=== PATIENT | male | born 1960 | race Hispanic/Latino ===

== ENCOUNTER → 2024-05-16 16:12 | Outpatient (REF) | payer OTHER, SELFPAY ==
[2024-05-16 17:04] LABS: C-Reactive Protein < 5.00 mg/L (0.0-10.00)
[2024-05-16 17:18] LABS: Erythrocyte Sed Rate 1 mm/hour (0-20)
== END ==
LOC: REG 16:12
PROVIDERS: ATTENDING PHYSICIAN Orthopaedic Surgery; FAMILY PHYSICIAN Family Medicine
DX: Z96.652 Presence of left artificial knee joint (principal)
CPT/HCPCS: 36415; 85652; 86140

== ENCOUNTER 2024-06-12 07:43 | Inpatient (IN) | payer OTHER, SELFPAY ==
[2024-05-27 08:52] LABS: Hematocrit 45.5 % (39.0-52.0); Hemoglobin 15.6 g/dL (13.0-18.0); Mean Corp Hgb Conc. 34.3 g/dL (33.0-37.0); Mean Corpuscular Hgb 31.7 pg (27.0-31.0); Mean Corpuscular Volume 92.5 fL (80.0-94.0); Mean Platelet Volume 10.1 fL (7.4-10.4); Platelet Count 266 10^3/uL (130-400); Red Blood Cell Count 4.92 10^6/uL (4.70-6.10); Red Cell Dist. Width 12.9 % (11.5-14.5); White Blood Cell Count 5.6 10^3/uL (4.8-10.8)
[2024-05-27 09:21] LABS: ALT (SGPT) 21 U/L (0-50); AST (SGOT) 21 U/L (17-59); Albumin 4.5 g/dl (3.5-5.0); Alkaline Phosphatase 99 U/L (38-126); Blood Urea Nitrogen 17 mg/dl (9-20); Calcium 9.7 mg/dl (8.4-10.2); Carbon Dioxide 28 mmol/L (22-30); Chloride 102 mmol/L (98-107); Glucose 96 mg/dl (70-99); Potassium 4.4 mmol/L (3.5-5.1); Sodium 137 mmol/L (135-145); Total Bilirubin 1.2 mg/dl (0.2-1.3); Total Protein 7.1 g/dl (6.3-8.2); eGFR > 60.00
[2024-05-27 09:36] LABS: Glycohemoglobin (HgbA1c) 5.5 % (4.0-5.6)
[2024-05-27 14:14] VITALS: BMI 35.0
[2024-06-04 11:59] VITALS: BMI 35.0
[2024-06-12] VITALS (17 sets, daily range): BP systolic 140–173; BP diastolic 89–112; PULSE 102; O2SAT 97
[2024-06-12] MEDS: TYLENOL 650 MG PO ×3 (08:05→20:50)
[2024-06-12] MEDS: NORMOSOL-R/PLASMALYTE-A 1000 IV ×2 (08:05→17:26)
[2024-06-12] MEDS: CELEBREX 200 MG PO (08:06)
[2024-06-12] MEDS: BACTROBAN NASAL 1 GRAM NASAL (08:06)
[2024-06-12] MEDS: DILAUDID 0.5 MG IV ×2 (10:55→11:14)
--- NOTE | 2024-06-12 11:25 | W.DS.TRANS ---
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
-
Discharge Instructions:
Discharge Diagnosis/Procedures L TKA Revision 06/12/24
Diet As tolerated
Activity With Walker
Driving Restrictions No driving
Bathing Restrictions OK to Shower
Other Services PT
Instructions:
Stand-Alone Forms: Total Hip/Knee Replacement D/C
Changes to Home Medications: Yes
Discharge Medications:
DC Medications w/original date entered in [employer]
atorvastatin 10 mg tablet 40 mg PO DAILY 05/24/24
multivitamin 1 tab PO DAILY 05/24/24
mupirocin 2 % topical ointment 1 applic intranasal BID #1 tube 05/27/24
Saccharomyces boulardii 250 mg capsule (Florastor) 250 mg PO BID #1 cap 06/12/24
acetaminophen 325 mg tablet (Tylenol) 650 mg (2 x 325 mg) PO QID #0 tabs 06/12/24
aspirin 325 mg tablet 325 mg PO DAILY blood clot prevention #1 tab 06/12/24
cefadroxil 500 mg capsule 500 mg PO BID infection prevention #14 caps 06/12/24
celecoxib 200 mg capsule (Celebrex) 200 mg PO DAILY #0 caps 06/12/24
dexamethasone 4 mg tablet 4 mg PO BID inflammation #6 tabs 06/12/24
docusate sodium 100 mg capsule (Colace) 100 mg PO BID stool softner #1 cap 06/12/24
famotidine 20 mg tablet 20 mg PO HS GI prophylaxis #30 tabs 06/12/24
gabapentin 300 mg capsule 300 mg PO HS sleep/pain #10 caps 06/12/24
magnesium hydroxide 400 mg/5 mL oral suspension (Milk of Magnesia) 30 ml PO HS PRN Constipation #1 mL 06/12/24
ondansetron 4 mg disintegrating tablet 4 mg PO Q6H PRN n/v #20 tabs 06/12/24
oxycodone 5 mg tablet 5 mg PO Q6H PRN 1 tab moderate pain, 2 tabs severe pain #30 tabs 06/12/24
sennosides 8.6 mg tablet (Senokot) 17.2 mg (2 x 8.6 mg) PO BID laxative #2 tabs 06/12/24
Home Medication Changes
mupirocin 2 % topical ointment 1 applic intranasal BID #1 tube 05/27/24
Saccharomyces boulardii 250 mg capsule (Florastor) 250 mg PO BID #1 cap 06/12/24
acetaminophen 325 mg tablet (Tylenol) 650 mg (2 x 325 mg) PO QID #0 tabs 06/12/24
aspirin 325 mg tablet 325 mg PO DAILY blood clot prevention #1 tab 06/12/24
cefadroxil 500 mg capsule 500 mg PO BID infection prevention #14 caps 06/12/24
celecoxib 200 mg capsule (Celebrex) 200 mg PO DAILY #0 caps 06/12/24
dexamethasone 4 mg tablet 4 mg PO BID inflammation #6 tabs 06/12/24
docusate sodium 100 mg capsule (Colace) 100 mg PO BID stool softner #1 cap 06/12/24
famotidine 20 mg tablet 20 mg PO HS GI prophylaxis #30 tabs 06/12/24
gabapentin 300 mg capsule 300 mg PO HS sleep/pain #10 caps 06/12/24
magnesium hydroxide 400 mg/5 mL oral suspension (Milk of Magnesia) 30 ml PO HS PRN Constipation #1 mL 06/12/24
ondansetron 4 mg disintegrating tablet 4 mg PO Q6H PRN n/v #20 tabs 06/12/24
oxycodone 5 mg tablet 5 mg PO Q6H PRN 1 tab moderate pain, 2 tabs severe pain #30 tabs 06/12/24
sennosides 8.6 mg tablet (Senokot) 17.2 mg (2 x 8.6 mg) PO BID laxative #2 tabs 06/12/24
Pending Results: No
--- NOTE | 2024-06-12 11:26 | W.PN.UPDATE ---
Update Note
Progress Note Update
L TKA Revision-06/12/24-*Early D/C*
DVT ppx ASA
[2024-06-12] MEDS: DILAUDID 0.25 MG IV (12:07)
[2024-06-12] MEDS: ROXICODONE 5 MG PO ×3 (13:45→19:30)
--- NOTE | 2024-06-12 15:59 | PTCARENOTE ---
Received patient from [facility] at 1550 via bed in stable condition. Dressing to left knee with moderate drainage. Alia Brown made aware. Patient oriented to room. Call sapp in reach.
[2024-06-12] MEDS: TYLENOL PO (16:27)
[2024-06-12] MEDS: ASPIRIN 325 MG PO (17:25)
[2024-06-12] MEDS: ANCEF 5 IV (17:25)
[2024-06-12] MEDS: LIPITOR 40 MG PO (17:25)
[2024-06-12] MEDS: COLACE 100 MG PO (20:50)
[2024-06-12] MEDS: SENOKOT 17.2 MG PO (20:50)
[2024-06-12] MEDS: BACTROBAN 2% OINTMENT 1 APPLIC NASAL (22:23)
[2024-06-12] MEDS: DECADRON 4 MG IV (22:24)
[2024-06-12] MEDS: TORADOL 15 MG IV (22:24)
[2024-06-12] MEDS: ULTRAM 50 MG PO (22:25)
[2024-06-12] MEDS: PEPCID 20 MG PO (22:25)
[2024-06-12] MEDS: NEURONTIN 300 MG PO (22:25)
[2024-06-13] MEDS: ANCEF 5 IV (00:23)
[2024-06-13] MEDS: TYLENOL 650 MG PO ×3 (00:23→08:20)
[2024-06-13 03:21] VITALS: BP 143/91
[2024-06-13] MEDS: ULTRAM 50 MG PO (05:57)
[2024-06-13] MEDS: DECADRON 4 MG IV (05:58)
[2024-06-13] MEDS: ROXICODONE 5 MG PO ×2 (05:58→09:54)
[2024-06-13] MEDS: TORADOL 15 MG IV (05:58)
[2024-06-13 07:25] VITALS: BP 142/99
[2024-06-13 08:11] VITALS: BP 142/99; PULSE 95; O2SAT 95
[2024-06-13] MEDS: ASPIRIN 325 MG PO (08:20)
[2024-06-13] MEDS: CELEBREX 200 MG PO (08:20)
[2024-06-13] MEDS: COLACE 100 MG PO (08:20)
[2024-06-13] MEDS: LIPITOR 40 MG PO (08:20)
[2024-06-13] MEDS: BACTROBAN 2% OINTMENT 1 APPLIC NASAL (08:21)
[2024-06-13] MEDS: SENOKOT 17.2 MG PO (08:27)
--- NOTE | 2024-06-13 08:50 | CM ---
Cm reviewed medical records. CM met with patient and in room. Patient confirmed demographics. Patient lives with in a two story home. Patient has had a history of VN with an unknown agency. Patient does not have a history of SNF. Patient
is active with his PCP. Patient confirmed that he has all appropriate DME in the home. P
Plan for outpatient PT on 06/14 at [facility] in [place].
CM will remain available as needed.
PLAN: home with outpatient pt, pending PT/OT assessment.
[2024-06-13 09:06] VITALS: BP 137/95; PULSE 90
--- NOTE | 2024-06-13 09:30 | W.PN.ORTHO ---
Today's Communication / Plan
-
d/c
Assessment
.
Distal Motor Intact: Yes
Dressing:
Clean, dry and intact.
Assessment:
Incisional serous sanguinous drainage as typical for revision-dose x1 tranexamic acid, change bandage and reinforce-hgb stable with no hemodynamic compromise
Plan
.
Surgery / Date: L TKA Revision-06/12/24-*Early D/C*
DVT Prophylaxis: Aspirin
Activity:
Out of bed.
PT/OT
Discharge Plan: Home w/ Outpatient PT
Subjective
.
.:
Patient resting comfortably.
Vital Signs and Labs
.
Vital Signs and Labs:
Lab Results
05/27/24 07:23
05/27/24 07:23
Temp Pulse Resp BP Pulse Ox
97.7 F 95 18 142/99 96
06/13/24 07:25 06/13/24 07:25 06/13/24 07:25 06/13/24 07:25 06/13/24 07:25
Non-invasive Hgb result: 13.6
Physical Exam
-
HEENT: No pallor, cyanosis, or jaundice. Throat clear.
NECK: Supple. No JVD.
RESPIRATORY: Lungs clear to auscultation.
CVS: S1, S2 normal. RRR.� No murmur, rub or gallop.
ABDOMEN: Soft, non-tender. No distension. BS+/normal.
EXTREMITIES: strength equal, no calf pain with palpation-distal drainage from incision
MANAGER FILTER: AOx3. No focal deficits. 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
[2024-06-13] MEDS: CYKLOKAPRON 1300 MG PO (09:53)
[2024-06-13 18:45] LABS: Hepatitis C Antibody Negative (Negative)
== END 2024-06-13 10:38 | disposition home or self-care (01) | DRG 468 ==
LOC: 2 SOUTH 07:43
PROVIDERS: ADMITTING PHYSICIAN Orthopaedic Surgery; FAMILY PHYSICIAN Family Medicine
PROC: 0SUW09Z Supplement Left Knee Joint, Tibial Surface with Liner, Open Approach (ICD-10-PCS; 2024-06-12)
PROC: 0SRW0J9 Replacement of Left Knee Joint, Tibial Surface with Synthetic Substitute, Cemented, Open Approach (ICD-10-PCS; 2024-06-12)
PROC: 0SPD09Z Removal of Liner from Left Knee Joint, Open Approach (ICD-10-PCS; 2024-06-12)
PROC: 0SPW0JZ Removal of Synthetic Substitute from Left Knee Joint, Tibial Surface, Open Approach (ICD-10-PCS; 2024-06-12)
DX: T84.093A Other mechanical complication of internal left knee prosthesis, initial encounter (principal); Y79.2 Prosthetic and other implants, materials and accessory orthopedic devices associated with adverse incidents; M25.562 Pain in left knee; E66.09 Other obesity due to excess calories; Z96.652 Presence of left artificial knee joint; Z68.34 Body mass index [BMI] 34.0-34.9, adult
CPT/HCPCS: 73560; 80053; 83036; 85027; 86803; 86850; 86900; 86901; 87070; 93005; 97116; 97162; 97166; 97530; C1713; C1776

== ENCOUNTER 2025-02-12 08:50 | Inpatient (IN) | payer OTHER, SELFPAY ==
[2025-01-20 09:09] LABS: Hematocrit 45.3 % (39.0-52.0); Hemoglobin 15.8 g/dL (13.0-18.0); Mean Corp Hgb Conc. 34.9 g/dL (33.0-37.0); Mean Corpuscular Volume 93.6 fL (80.0-94.0); Platelet Count 266 10^3/uL (130-400); Red Cell Dist. Width 13.6 % (11.5-14.5)
[2025-01-20 09:29] LABS: Glycohemoglobin (HgbA1c) 5.3 % (4.0-5.9)
[2025-01-20 09:33] LABS: ALT (SGPT) 23 U/L (0-50); AST (SGOT) 22 U/L (17-59); Albumin 4.4 g/dl (3.5-5.0); Alkaline Phosphatase 97 U/L (38-126); Blood Urea Nitrogen 20 mg/dl (9-20); Calcium 9.3 mg/dl (8.4-10.2); Carbon Dioxide 32 mmol/L (22-30); Chloride 100 mmol/L (98-107); Glucose 111 mg/dl (70-99); HDL Cholesterol 74 mg/dl; LDL Cholesterol, Calculated 94 mg/dl; Potassium 4.7 mmol/L (3.5-5.1); Sodium 134 mmol/L (135-145); Total Protein 7.2 g/dl (6.3-8.2); Very Low Density Lipoprotein 9 mg/dl (0-30); eGFR > 60.00
[2025-01-20 13:56] VITALS: BMI 36.1
--- NOTE | 2025-01-24 09:07 | CM ---
Addendum entered by Libby Rodriguez RN 01/28/25 13:57:
Demographics: confirmed
Living situation: lives with
Support Person Post Operatively:
History of
VN: no
SNF: no
Outpatient: encouraged patient for 02/14, [facility]
Has patient purchased required equipment: yes
PCP: Debbie Baker
Pharmacy: [facility]
Post Operative Discharge Plan: Outpatient PT
Addendum entered by Libby Rodriguez RN 01/28/25 13:51:
CM left message for orthopedic IA.
Original Note:
CM reviewed medical records. Patient unable to speak at this time. Patient will call this CM back for orthopedic IA.
[2025-02-04 10:03] VITALS: BMI 36.1
[2025-02-12] VITALS (17 sets, daily range): BP systolic 112–177; BP diastolic 42–118; PULSE 100; O2SAT 95
[2025-02-12] MEDS: BACTROBAN NASAL 1 GRAM NASAL (09:02)
[2025-02-12] MEDS: TYLENOL 650 MG PO ×4 (09:03→23:30)
[2025-02-12] MEDS: CELEBREX 200 MG PO (09:03)
[2025-02-12] MEDS: NORMOSOL-R/PLASMALYTE-A 1000 IV ×2 (09:04→13:30)
[2025-02-12] MEDS: SUBLIMAZE 25 MCG IV (11:59)
[2025-02-12] MEDS: DILAUDID 0.5 MG IV ×2 (12:11→12:25)
--- NOTE | 2025-02-12 12:43 | W.PN.ORTHO ---
Today's Communication / Plan
-
d/c when stable
Plan
.
Surgery / Date: R LEO Ewing 02/12/25
DVT Prophylaxis: Aspirin
Activity:
Out of bed.
PT/OT
Discharge Plan: Home w/ Outpatient PT
Vital Signs and Labs
.
Vital Signs and Labs:
Lab Results
01/20/25 07:39
01/20/25 07:39
Temp Pulse Resp BP Pulse Ox
98.3 F 96 12 177/96 99
02/12/25 11:50 02/12/25 12:30 02/12/25 12:30 02/12/25 12:15 02/12/25 12:35
--- NOTE | 2025-02-12 12:54 | W.DS.TRANS ---
DC Summary - Rn Endocrinology
-
Discharge Instructions:
Discharge Diagnosis/Procedures R knee OA s/p R TKA w/ Dr Ewing 02/12/2025
Diet Other diet
Additional Diets Diabetic carb controlled x1 week for wound
healing/infection prevention.
Adequate hydration, minimize opioids, and wear
TEDS to prevent low blood pressure/dizziness.
Activity As tolerated,With Walker
Driving Restrictions Not until seen by your Dr
Bathing Restrictions OK to Shower
Other Services PT
Wound Care Dressing to be removed 1 week post-surgery.
Instructions:
Stand-Alone Forms: Total Hip/Knee Replacement D/C
Changes to Home Medications: Yes
Discharge Medications:
DC Medications w/original date entered in [employer]
atorvastatin 10 mg tablet 40 mg PO DAILY High Cholesterol 05/24/24
terbinafine HCl 250 mg tablet 250 mg PO DAILY 01/16/25
cefadroxil 500 mg capsule 500 mg PO BID #14 caps 01/20/25
celecoxib 200 mg capsule (Celebrex) 200 mg PO DAILY 01/20/25
dexamethasone 4 mg tablet 4 mg PO BID Anti-inflammatory #5 tabs 01/20/25
gabapentin 300 mg capsule 300 mg PO HS neuropathic pain/sleep #10 caps 01/20/25
mupirocin 2 % topical ointment 1 applic intranasal BID #1 tube 01/20/25
ondansetron HCl 4 mg tablet 4 mg PO Q6H PRN nausea and vomiting #30 tabs 01/20/25
oxycodone 5 mg tablet 5 - 10 mg (1 - 2 x 5 mg) PO Q6H PRN moderate-severe pain #30 tabs 01/20/25
acetaminophen 500 mg tablet (Tylenol Extra Strength) 1,000 mg (2 x 500 mg) PO QID #0 tabs 02/12/25
aspirin 325 mg tablet 325 mg PO DAILY blood clot prevention #1 tab 02/12/25
docusate sodium 100 mg capsule (Colace) 100 mg PO BID stool softner #1 cap 02/12/25
famotidine 20 mg tablet (Pepcid) 20 mg PO HS #0 tabs 02/12/25
lisinopril 10 mg tablet 10 mg PO DAILY #0 tabs 02/12/25
magnesium hydroxide 400 mg/5 mL oral suspension (Milk of Magnesia) 30 ml PO HS PRN constipation #1 mL 02/12/25
sennosides 8.6 mg tablet (Senokot) 17.2 mg (2 x 8.6 mg) PO BID laxative #2 tabs 02/12/25
Home Medication Changes
cefadroxil 500 mg capsule 500 mg PO BID #14 caps 01/20/25
celecoxib 200 mg capsule (Celebrex) 200 mg PO DAILY 01/20/25
dexamethasone 4 mg tablet 4 mg PO BID Anti-inflammatory #5 tabs 01/20/25
gabapentin 300 mg capsule 300 mg PO HS neuropathic pain/sleep #10 caps 01/20/25
mupirocin 2 % topical ointment 1 applic intranasal BID #1 tube 01/20/25
ondansetron HCl 4 mg tablet 4 mg PO Q6H PRN nausea and vomiting #30 tabs 01/20/25
oxycodone 5 mg tablet 5 - 10 mg (1 - 2 x 5 mg) PO Q6H PRN moderate-severe pain #30 tabs 01/20/25
acetaminophen 500 mg tablet (Tylenol Extra Strength) 1,000 mg (2 x 500 mg) PO QID #0 tabs 02/12/25
aspirin 325 mg tablet 325 mg PO DAILY blood clot prevention #1 tab 02/12/25
docusate sodium 100 mg capsule (Colace) 100 mg PO BID stool softner #1 cap 02/12/25
famotidine 20 mg tablet (Pepcid) 20 mg PO HS #0 tabs 02/12/25
lisinopril 10 mg tablet 10 mg PO DAILY #0 tabs 02/12/25
magnesium hydroxide 400 mg/5 mL oral suspension (Milk of Magnesia) 30 ml PO HS PRN constipation #1 mL 02/12/25
sennosides 8.6 mg tablet (Senokot) 17.2 mg (2 x 8.6 mg) PO BID laxative #2 tabs 02/12/25
Pending Results: No
[2025-02-12] MEDS: ROXICODONE 5 MG PO ×2 (14:32→23:29)
--- NOTE | 2025-02-12 15:35 | CM ---
Chart reviewed and patient is for discharge to home with spouse tomorrow, patient has been scheduled for early discharge, patient reports he needs a prescription for outpatient PT. Patient has scheduled his appointment at [facility] in [place], spouse
to provide transportation.
Plan; Early discharge tomorrow, outpatient PT set up at [facility], 02/14/25.
[2025-02-12] MEDS: LIPITOR 40 MG PO (15:52)
[2025-02-12] MEDS: ASPIRIN 325 MG PO (17:00)
[2025-02-12] MEDS: ANCEF 5 IV (17:00)
[2025-02-12] MEDS: ROXICODONE 10 MG PO (18:38)
[2025-02-12] MEDS: SENOKOT 17.2 MG PO (19:45)
[2025-02-12] MEDS: COLACE 100 MG PO (19:45)
[2025-02-12] MEDS: BACTROBAN 2% OINTMENT 1 APPLIC NASAL (19:46)
[2025-02-12] MEDS: PEPCID 20 MG PO (20:40)
[2025-02-13] MEDS: ANCEF 5 IV (02:16)
[2025-02-13 03:00] VITALS: BP 141/85
[2025-02-13] MEDS: TYLENOL PO (03:54)
[2025-02-13] MEDS: ROXICODONE 5 MG PO (06:42)
[2025-02-13 07:40] VITALS: BP 154/96
[2025-02-13] MEDS: TYLENOL 650 MG PO ×3 (07:46→16:09)
[2025-02-13] MEDS: SENOKOT 17.2 MG PO (07:47)
[2025-02-13] MEDS: COLACE 100 MG PO (07:47)
[2025-02-13] MEDS: ASPIRIN 325 MG PO (07:47)
[2025-02-13] MEDS: BACTROBAN 2% OINTMENT 1 APPLIC NASAL (07:48)
[2025-02-13 08:27] VITALS: BP 154/96; BP 168/102; PULSE 97; O2SAT 94
--- NOTE | 2025-02-13 08:32 | W.PN.ORTHO ---
Today's Communication / Plan
-
d/c
Assessment
.
Distal Motor Intact: Yes
Dressing:
Clean, dry and intact.
Plan
.
Surgery / Date: Albert Ewing 02/12/25
DVT Prophylaxis: Aspirin
Activity:
Out of bed.
PT/OT
Discharge Plan: Home w/ Outpatient PT
Subjective
.
.:
Patient resting comfortably.
Vital Signs and Labs
.
Vital Signs and Labs:
Lab Results
01/20/25 07:39
01/20/25 07:39
Temp Pulse Resp BP Pulse Ox
98.9 F 97 16 154/96 94
02/13/25 07:40 02/13/25 07:40 02/13/25 07:40 02/13/25 07:40 02/13/25 07:40
Non-invasive Hgb result: 13.1
Physical Exam
-
HEENT: No pallor, cyanosis, or jaundice. Throat clear.
NECK: Supple. No JVD.
RESPIRATORY: Lungs clear to auscultation.
CVS: S1, S2 normal. RRR.� No murmur, rub or gallop.
ABDOMEN: Soft, non-tender. No distension. BS+/normal.
EXTREMITIES: strength equal, no calf pain with palpation
MANAGER SPANISH: AOx3. No focal deficits. 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
[2025-02-13] MEDS: CELEBREX 200 MG PO (08:41)
[2025-02-13] MEDS: LIPITOR 40 MG PO (08:42)
--- NOTE | 2025-02-13 08:47 | CM ---
Home today with outpatient physical therapy, patient has prescription for outpatient physical therapy.
Plan; Outpatient PT set up at [facility], 02/14/25. Patient has prescription.
[2025-02-13] MEDS: ULTRAM 50 MG PO ×2 (09:00→13:26)
--- NOTE | 2025-02-13 10:07 | PTCARENOTE ---
Pain is still 8/10 in right knee after oxycodone, scheduled meds and tramadol 50 mg. PA aware, will give oxycodone when PRN dose is available to give.
[2025-02-13 10:15] VITALS: BP 153/94
[2025-02-13] MEDS: ROXICODONE 10 MG PO (10:42)
[2025-02-13] MEDS: DILAUDID 0.5 MG IV (11:17)
--- NOTE | 2025-02-13 11:43 | W.PN.UPDATE ---
Update Note
Progress Note Update
Patient seen early this am and was pleasant and pain free. Developed intractable pain when working with therapy mainly medial portion of knee -flexion and now at rest.
-XR
-adjust pain regimen
[2025-02-13] MEDS: VALIUM 5 MG PO (11:49)
[2025-02-13] MEDS: DECADRON 4 MG IV (11:50)
[2025-02-13] MEDS: NEURONTIN 300 MG PO ×2 (11:50→16:09)
[2025-02-13] MEDS: TORADOL 15 MG IV (11:50)
[2025-02-13 15:25] VITALS: BP 151/90
[2025-02-13 15:40] VITALS: BP 136/91; PULSE 90
== END 2025-02-13 16:53 | disposition home or self-care (01) | DRG 470 ==
LOC: 2 SOUTH 08:50
PROVIDERS: ADMITTING PHYSICIAN Orthopaedic Surgery; FAMILY PHYSICIAN Family Medicine
PROC: 0SRC0J9 Replacement of Right Knee Joint with Synthetic Substitute, Cemented, Open Approach (ICD-10-PCS; 2025-02-12)
DX: M17.11 Unilateral primary osteoarthritis, right knee (principal); E87.1 Hypo-osmolality and hyponatremia; I10 Essential (primary) hypertension; E78.5 Hyperlipidemia, unspecified; G47.33 Obstructive sleep apnea (adult) (pediatric); K21.9 Gastro-esophageal reflux disease without esophagitis; K64.9 Unspecified hemorrhoids; G62.9 Polyneuropathy, unspecified; E66.9 Obesity, unspecified; M51.369 Other intervertebral disc degeneration, lumbar region without mention of lumbar back pain or lower extremity pain; Z96.652 Presence of left artificial knee joint; Z68.36 Body mass index [BMI] 36.0-36.9, adult; Z87.442 Personal history of urinary calculi; Z79.1 Long term (current) use of non-steroidal anti-inflammatories (NSAID)
CPT/HCPCS: 73560; 80053; 80061; 83036; 85027; 87070; 93005; 97110; 97116; 97162; 97166; C1713; C1776